=== PATIENT | male | born 1960 | race Caucasian/White ===

== ENCOUNTER 2020-05-08 11:19 | Inpatient (IN) | payer SELFPAY ==
--- NOTE | 2020-05-08 12:09 | RAD REPORT ---
EXAM DESCRIPTION: RAD - Chest Single View - 05/08/2020 12:02 pm CLINICAL HISTORY: CHEST PAIN Chest pain. COMPARISON: No comparisons FINDINGS: Portable technique limits examination quality. The lungs are grossly clear. The heart is normal in size. No displaced fractures. IMPRESSION: No acute intrathoracic process suspected.
[2020-05-08] MEDS ORDERED: ASPIRIN 81 MG CHEWABLE TABLET ONE (12:11)
[2020-05-08] MEDS ORDERED: NITROGLYCERIN 0.4 MG/TAB SL ONE (12:11)
[2020-05-08 12:23] LABS: Protime INR 0.93
[2020-05-08 12:24] LABS: Basophils % 1.3 % (0-1.3); Hematocrit 41.8 % (39.6-49.0); Lymphocytes % 16.6 % (15.3-44.8); MPV 6.7 fL (7.6-11.3); RBC Red Blood Cell Count 4.52 M/uL (4.33-5.43)
[2020-05-08 12:53] LABS: ALT/SGPT 31 U/L (12-78); AST/SGOT 22 U/L (15-37); Albumin 3.8 g/dL (3.4-5.0); Alkaline Phosphatase 78 U/L (45-117); BUN Blood Urea Nitrogen 15 mg/dL (7-18); Bicarbonate 25 mmol/L (21-32); Bilirubin Direct 0.1 mg/dL (0-0.2); Bilirubin Total 0.5 mg/dL (0.2-1.0); Glucose Level 105 mg/dL (74-106); Magnesium 2.4 mg/dL (1.8-2.4); NT PRO-BNP 73 pg/mL (<125); Potassium 4.1 mmol/L (3.5-5.1); Protein, Total 7.3 g/dL (6.4-8.2); Sodium Level 136 mmol/L (136-145); Troponin (Emerg Dept Use Only) < 0.02 ng/mL (0.0-0.045)
--- NOTE | 2020-05-08 13:26 | EDPHYS ---
Physician Documentation [facility] Name: Flavio Peguero Age: 60 yrs Sex: Male : 1960 Arrival Date: 05/08/2020 Time: 11:22 Bed 20 Private MD: ED Physician Luan Lui HPI: 05/08 12:03 This 60 yrs old Male presents to ER via Ambulatory with complaints of L Side cp Numbness, Numbness In Chest. 12:05 The patient or guardian reports chest pain that is located primarily in the anterior cp chest wall, left. 12:05 Onset: this morning, while at work. The pain radiates to the left arm. Associated signs cp and symptoms: Pertinent positives: numbness of lips, left side of chest and left arm, Pertinent negatives: headache, weakness. The chest pain is described as aching. Duration: The patient or guardian reports multiple episodes, that are worse with exertion. Severity of pain: in the emergency department the pain has improved markedly. The patient has not experienced similar symptoms in the past. 12:05 Modifying factors: The symptoms are alleviated by rest, the symptoms are aggravated by cp activity. Historical: - Allergies: 11:37 PENICILLINS; ll1 - PMHx: 11:37 Hypertension; Gout; ll1 - PSHx: 11:37 None; ll1 - Immunization history:: Adult Immunizations up to date. - Social history:: Smoking status: Patient/guardian denies using tobacco, the patient reports quitting approximately 6 years ago, Patient/guardian denies using alcohol, street drugs. ROS: 12:05 Constitutional: Negative for body aches, chills, fever, poor PO intake. cp 12:05 Cardiovascular: Positive for chest pain, of the left side of chest. 12:05 Respiratory: Negative for cough, shortness of breath, wheezing. 12:05 Abdomen/GI: Negative for abdominal pain, nausea, vomiting, and diarrhea. 12:05 Back: Negative for radiated pain. 12:05 Neuro: Positive for numbness, tingling, of the left side of chest and left arm, Negative for weakness. 12:05 All other systems are negative. Exam: 12:00 ECG was reviewed by the Attending Physician. cp 12:09 Constitutional: The patient appears in no acute distress, alert, awake, comfortable, cp non-diaphoretic, non-toxic, well developed, well nourished. 12:09 Head/Face: Normocephalic, atraumatic. cp 12:09 Eyes: Periorbital structures: appear normal, Conjunctiva: normal, no exudate, no injection, Sclera: no appreciated abnormality, Lids and lashes: appear normal, bilaterally. 12:09 ENT: External ear(s): are unremarkable, Nose: is normal, Mouth: is normal, Posterior pharynx: Airway: no evidence of obstruction, patent. 12:09 Neck: ROM/movement: is normal, is supple, without pain, no range of motions limitations. 12:09 Chest/axilla: Inspection: normal, Palpation: is normal, no crepitus, no tenderness. 12:09 Cardiovascular: Rate: normal, Rhythm: regular, Heart sounds: murmur, not appreciated, rub, not appreciated, gallop, not appreciated, Edema: is not appreciated, JVD: is not appreciated. 12:09 Respiratory: the patient does not display signs of respiratory distress, Respirations: normal, no use of accessory muscles, no retractions, labored breathing, is not present, Breath sounds: are clear throughout, no decreased breath sounds. 12:09 Abdomen/GI: Inspection: abdomen appears normal, Palpation: abdomen is soft and non-tender, in all quadrants. 12:09 Back: pain, is absent, ROM is normal. 12:09 Neuro: Orientation: to person, place \T\ time. Mentation: is normal, Cerebellar function: is grossly normal, Motor: moves all fours, strength is normal, Sensation: no obvious gross deficits. Vital Signs: 11:35 BP 195 / 95; Pulse 62; Resp 18; Temp 98.1; Pulse Ox 97% ; Pain 3/10; ll1 12:21 BP 174 / 91; Pulse 63; Resp 20; Pulse Ox 96% on R/A; jr10 12:57 BP 162 / 86; Pulse 56; Resp 18; Pulse Ox 96% on R/A; jr10 13:23 BP 175 / 88 RA; Pulse 58; Resp 18; Pulse Ox 94% on R/A; jr10 13:23 BP 155 / 94 LA; Pulse 58; Resp 18; Pulse Ox 95% ; jr10 14:54 BP 156 / 95; Pulse 55; Resp 18; Pulse Ox 96% on R/A; Pain 0/10; jr10 16:23 BP 168 / 82; Pulse 53; Resp 18; Pulse Ox 96% ; jr10 NIH Stroke Scale Scores: 12:00 NIHSS Score: 0 jr10 12:09 NIHSS Score: 0 [place] Coma Score: 12:00 Eye Response: spontaneous(4). Verbal Response: oriented(5). Motor Response: obeys jr10 commands(6). Total: 15. MDM: 11:39 Patient medically screened. cp 13:15 The patient was given aspirin in the Emergency Department. Data reviewed: vital signs, nurses notes, lab test result(s), EKG, radiologic studies, plain films. 13:15 Test interpretation: by ED physician or midlevel provider: ECG. cp 13:25 HEART Score: History: Highly Suspicious (2), ECG: Normal (0), Age: > 45 and < 65 years cp (1), Risk Factors: 1 or 2 risk factors (1), [Hypertension] Troponin: < or = 1 x Normal Limit (0). 13:25 Counseling: I had a detailed discussion with the patient and/or guardian regarding: the cp historical points, exam findings, and any diagnostic results supporting the discharge/admit diagnosis, the presence of at least one elevated blood pressure reading (>120/80) during this emergency department visit, lab results, radiology results, the need for further work-up and treatment in the hospital. Response to treatment: the patient's condition has returned to base line. Physician consultation: Jerome Roldan MD was called at 13:20, was contacted at 13:20, regarding admission, to the telemetry unit. patient's condition, and will see patient in ED. 05/08 11:39 Order name: Basic Metabolic Panel; Complete Time: 13:10 cp 05/08 11:39 Order name: CBC with Diff; Complete Time: 12:40 cp 05/08 12:40 Interpretation: Normal except: MPV 6.7; EOSINOPHIL % 8.6. cp 05/08 11:39 Order name: LFT's; Complete Time: 13:10 cp 05/08 11:39 Order name: Magnesium; Complete Time: 13:10 cp 05/08 11:39 Order name: NT PRO-BNP; Complete Time: 13:10 cp 05/08 11:39 Order name: PT-INR; Complete Time: 12:40 cp 05/08 11:39 Order name: Troponin (emerg Dept Use Only); Complete Time: 13:10 cp 05/08 15:27 Order name: Troponin I [facility] 05/08 15:27 Order name: Troponin I [facility] 05/08 15:27 Order name: Troponin I [facility] 05/08 15:27 Order name: Troponin I [facility] 05/08 15:28 Order name: Basic Metabolic Panel [facility] 05/08 15:28 Order name: CBC with Automated Diff [facility] 05/08 15:28 Order name: Lipid Profile [facility] 05/08 11:39 Order name: XRAY Chest (1 view); Complete Time: 12:40 cp 05/08 11:39 Order name: EKG; Complete Time: 11:40 cp 05/08 11:39 Order name: Cardiac monitoring; Complete Time: 11:47 cp 05/08 11:39 Order name: EKG - Nurse/Tech; Complete Time: 11:47 cp 05/08 11:39 Order name: IV Saline Lock; Complete Time: 12:15 cp 05/08 11:39 Order name: Labs collected and sent; Complete Time: 12:16 cp 05/08 11:39 Order name: O2 Per Protocol; Complete Time: 12:16 cp 05/08 11:39 Order name: O2 Sat Monitoring; Complete Time: 12:16 cp 05/08 13:10 Order name: Blood Pressure Recheck: bilateral upper extremity; Complete Time: 13:22 cp 05/08 15:27 Order name: CONS Physician Consult [facility] 05/08 15:27 Order name: Heart Healthy [facility] 05/08 15:27 Order name: EKG Electrocardiogram [facility] 05/08 15:52 Order name: CT Head Brain wo Cont 05/08 16:28 Order name: CT; Complete Time: 17:11 EDMS EC:00 Rate is 57 beats/min. Rhythm is regular. DE interval is normal. QRS interval is normal. cp QT interval is normal. T waves are Inverted in lead aVR. Interpreted by me. Reviewed by me. Administered Medications: 12:12 Drug: Aspirin Chewable Tablet 324 mg Route: PO; jr10 14:55 Follow up: Response: No adverse reaction jr10 13:24 Not Given (pt denies pain/pressure since arrival): Nitroglycerin 0.4 mg Sublingual once jr10 Disposition: 14:00 Chart complete. cp Disposition: 05/08/20 13:26 Hospitalization ordered by Jerome Roldan for Observation. Preliminary diagnosis is Chest pain, unspecified. - Bed requested for Telemetry/MedSurg (observation). - Status is Observation. jr10 - Condition is Stable. - Problem is new. - Symptoms are resolved. NIH Stroke Scale - NIH Stroke Score Date: 05/08/2020 Time: 12:00 Total Score = 0 1a. Level of Consciousness (LOC) - 0(Alert) 1b. Level of Consciousness (LOC) (Year \T\ Age) - 0(Both) 1c. LOC Commands (Open \T\ Closes Eyes/Latex Spooler) - 0(Both) 2. Best Gaze (Lateral Gaze Paresis) - 0(Normal) 3. Visual Field Loss - 0(No visual loss) 4. Facial Palsy - 0(Normal) 5a. Left Arm: Motor (10-second hold) - 0(No drift) 5b. Right Arm: Motor (10-second hold) - 0(No drift) 6a. Left Leg: Motor (5-second hold - always test supine) - 0(No drift) 6b. Right Leg: Motor (5-second hold - always test supine) - 0(No drift) 7. Limb Ataxia (finger/nose \T\ heel/ospina - test with eyes open) - 0(Absent) 8. Sensory Loss (pinprick arms/legs/face) - 0(Normal) 9. Best Language: Aphasia (description/naming/reading) - 0(No aphasia) 10. Dysarthria (speech clarity - read or repeat words) - 0(Normal) 11. Extinction and Inattention (visual/tactile/auditory/spatial/personal) - 0(No abnormality) Initials: jr10 NIH Stroke Scale - NIH Stroke Score Date: 05/08/2020 Time: 12:09 Total Score = 0 1a. Level of Consciousness (LOC) - 0(Alert) 1b. Level of Consciousness (LOC) (Year \T\ Age) - 0(Both) 1c. LOC Commands (Open \T\ Closes Eyes/Latex Spooler) - 0(Both) 2. Best Gaze (Lateral Gaze Paresis) - 0(Normal) 3. Visual Field Loss - 0(No visual loss) 4. Facial Palsy - 0(Normal) 5a. Left Arm: Motor (10-second hold) - 0(No drift) 5b. Right Arm: Motor (10-second hold) - 0(No drift) 6a. Left Leg: Motor (5-second hold - always test supine) - 0(No drift) 6b. Right Leg: Motor (5-second hold - always test supine) - 0(No drift) 7. Limb Ataxia (finger/nose \T\ heel/ospina - test with eyes open) - 0(Absent) 8. Sensory Loss (pinprick arms/legs/face) - 0(Normal) 9. Best Language: Aphasia (description/naming/reading) - 0(No aphasia) 10. Dysarthria (speech clarity - read or repeat words) - 0(Normal) 11. Extinction and Inattention (visual/tactile/auditory/spatial/personal) - 0(No abnormality) Initials: cp Addendum: 05/09/2020 19:50 Co-signature as Attending Physician, Luan Lui MD I agree with the kdr assessment and plan of care. Signatures: Dispatcher [employer] EDMS Christina Ramos Kevin, MD MD kdr Willi Hernandez PA PA cp Nate Small, RN RN ll1 Nell Dacosta RN RN jr10 Corrections: (The following items were deleted from the chart) 05/08 15:53 13:26 Hospitalization Ordered by Jerome Roldan MD for Observation. Preliminary bd diagnosis is Chest pain, unspecified. Bed requested for Telemetry/MedSurg (observation). Status is Observation. Condition is Stable. Problem is new. Symptoms are resolved. cp 17:07 15:53 05/08/2020 13:26 Hospitalization Ordered by Jerome Roldan MD for jr10 Observation. Preliminary diagnosis is Chest pain, unspecified. Bed requested for Telemetry/MedSurg (observation). Status is Observation. Condition is Stable. Problem is new. Symptoms are resolved. bd
--- NOTE | 2020-05-08 13:26 | ER ---
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 Pain is intermittent, when he sits and relaxes he feels better. Coronavirus screen: Client denies travel out of the [place] in the last 14 days. At this time, the client does not indicate any symptoms associated with coronavirus-19. Ebola Screen: Patient denies travel to an Ebola-affected area in the 21 days before illness onset. Initial Sepsis Screen: Does the patient meet any 2 criteria? No. Patient's initial sepsis screen is negative. Risk Assessment: Do you want to hurt yourself or someone else? Patient reports no desire to harm self or others. Onset of symptoms was May 08, 2020. 11:35 Method Of Arrival: Ambulatory ll1 11:35 Acuity: SINAN 3 ll1 Historical: - Allergies: 11:37 PENICILLINS; ll1 - PMHx: 11:37 Hypertension; Gout; ll1 - PSHx: 11:37 None; ll1 - Immunization history:: Adult Immunizations up to date. - Social history:: Smoking status: Patient/guardian denies using tobacco, the patient reports quitting approximately 6 years ago, Patient/guardian denies using alcohol, street drugs. Screenin:00 Abuse screen: Denies threats or abuse. Denies injuries from another. Nutritional jr10 screening: No deficits noted. Tuberculosis screening: No symptoms or risk factors identified. Fall Risk IV access (20 points). Assessment: 12:00 General: Appears in no apparent distress. Behavior is calm, cooperative, appropriate jr10 for age. Pain: Denies pain. Complains of pain in anterior aspect of left upper chest, left arm and left corner of mouth pt reports feeling a numbness that started in the left side of his mouth radiating down to left anterior chest wall and left arm approx 1.5 hours ago. Denies any pain/pressure at present. Neuro: No deficits noted. Cardiovascular: Reports chest pain, fatigue, lightheadedness, Denies shortness of breath, Patient's skin is warm and dry. Rhythm is sinus rhythm. Respiratory: Airway is patent Respiratory effort is even, unlabored, Respiratory pattern is regular, symmetrical, Breath sounds are clear bilaterally. Denies shortness of breath. GI: No deficits noted. No signs and/or symptoms were reported involving the gastrointestinal system. : No deficits noted. No signs and/or symptoms were reported regarding the genitourinary system. EENT: No deficits noted. No signs and/or symptoms were reported regarding the EENT system. Derm: No deficits noted. No signs and/or symptoms reported regarding the dermatologic system. Musculoskeletal: No deficits noted. No signs and/or symptoms reported regarding the musculoskeletal system. 14:00 Reassessment: Patient and/or family updated on plan of care and expected duration. Pain jr10 level reassessed. Patient is alert, oriented x 3, equal unlabored respirations, skin warm/dry/pink. 16:54 Reassessment: Patient and/or family updated on plan of care and expected duration. Pain jr10 level reassessed. Patient is alert, oriented x 3, equal unlabored respirations, skin warm/dry/pink. pt given meal tray, sitting up in bed eating. Updated on POC and room assignment, will be transferred to floor. Patient states symptoms have improved. Vital Signs: 11:35 BP 195 / 95; Pulse 62; Resp 18; Temp 98.1; Pulse Ox 97% ; Pain 3/10; ll1 12:21 BP 174 / 91; Pulse 63; Resp 20; Pulse Ox 96% on R/A; jr10 12:57 BP 162 / 86; Pulse 56; Resp 18; Pulse Ox 96% on R/A; jr10 13:23 BP 175 / 88 RA; Pulse 58; Resp 18; Pulse Ox 94% on R/A; jr10 13:23 BP 155 / 94 LA; Pulse 58; Resp 18; Pulse Ox 95% ; jr10 14:54 BP 156 / 95; Pulse 55; Resp 18; Pulse Ox 96% on R/A; Pain 0/10; jr10 16:23 BP 168 / 82; Pulse 53; Resp 18; Pulse Ox 96% ; jr10 [place] Coma Score: 12:00 Eye Response: spontaneous(4). Verbal Response: oriented(5). Motor Response: obeys jr10 commands(6). Total: 15. NIH Stroke Scale Scores: 12:00 NIHSS Score: 0 jr10 12:09 NIHSS Score: 0 cp ED Course: 11:22 Patient arrived in ED. ds1 11:31 Willi Hernandez PA is PHCP. cp 11:31 Luan Lui MD is Attending Physician. cp 11:35 Nate Small, DENTON is Primary Nurse. ll1 11:36 Triage completed. ll1 11:37 Arm band placed on Patient placed in an exam room, on a stretcher. ll1 11:46 EKG completed in triage. Results shown to MD. ll1 11:52 Nell Dacosta, DENTON is Primary Nurse. jr10 12:00 Patient has correct armband on for positive identification. Bed in low position. Call jr10 light in reach. Side rails up X2. monitor car operator on. Pulse ox on. NIBP on. 12:00 Inserted saline lock: 20 gauge in left forearm, using aseptic technique. IV is patent, jr10 is intact, with good blood return, Flushed. 12:03 XRAY Chest (1 view) In Process Unspecified. EDMS 12:20 No provider procedures requiring assistance completed. jr10 13:25 Jerome Roldan MD is Hospitalizing Provider. cp 16:41 Patient admitted, IV remains in place. intact, bleeding controlled, No redness/swelling jr10 at site. Administered Medications: 12:12 Drug: Aspirin Chewable Tablet 324 mg Route: PO; jr10 14:55 Follow up: Response: No adverse reaction jr10 13:24 Not Given (pt denies pain/pressure since arrival): Nitroglycerin 0.4 mg Sublingual once jr10 Outcome: 13:26 Decision to Hospitalize by Provider. cp 16:41 Admitted to Med/surg accompanied by tech, via wheelchair, room 229, with chart, Report jr10 called to DENTON RODRIGUEZ 16:41 Condition: improved 16:41 Instructed on the need for admit. 17:07 Patient left the ED. jr10 NIH Stroke Scale - NIH Stroke Score Date: 05/08/2020 Time: 12:00 Total Score = 0 1a. Level of Consciousness (LOC) - 0(Alert) 1b. Level of Consciousness (LOC) (Year \T\ Age) - 0(Both) 1c. LOC Commands (Open \T\ Closes Eyes/Signal Repairer) - 0(Both) 2. Best Gaze (Lateral Gaze Paresis) - 0(Normal) 3. Visual Field Loss - 0(No visual loss) 4. Facial Palsy - 0(Normal) 5a. Left Arm: Motor (10-second hold) - 0(No drift) 5b. Right Arm: Motor (10-second hold) - 0(No drift) 6a. Left Leg: Motor (5-second hold - always test supine) - 0(No drift) 6b. Right Leg: Motor (5-second hold - always test supine) - 0(No drift) 7. Limb Ataxia (finger/nose \T\ heel/ospina - test with eyes open) - 0(Absent) 8. Sensory Loss (pinprick arms/legs/face) - 0(Normal) 9. Best Language: Aphasia (description/naming/reading) - 0(No aphasia) 10. Dysarthria (speech clarity - read or repeat words) - 0(Normal) 11. Extinction and Inattention (visual/tactile/auditory/spatial/personal) - 0(No abnormality) Initials: jr10 NIH Stroke Scale - NIH Stroke Score Date: 05/08/2020 Time: 12:09 Total Score = 0 1a. Level of Consciousness (LOC) - 0(Alert) 1b. Level of Consciousness (LOC) (Year \T\ Age) - 0(Both) 1c. LOC Commands (Open \T\ Closes Eyes/Signal Repairer) - 0(Both) 2. Best Gaze (Lateral Gaze Paresis) - 0(Normal) 3. Visual Field Loss - 0(No visual loss) 4. Facial Palsy - 0(Normal) 5a. Left Arm: Motor (10-second hold) - 0(No drift) 5b. Right Arm: Motor (10-second hold) - 0(No drift) 6a. Left Leg: Motor (5-second hold - always test supine) - 0(No drift) 6b. Right Leg: Motor (5-second hold - always test supine) - 0(No drift) 7. Limb Ataxia (finger/nose \T\ heel/ospina - test with eyes open) - 0(Absent) 8. Sensory Loss (pinprick arms/legs/face) - 0(Normal) 9. Best Language: Aphasia (description/naming/reading) - 0(No aphasia) 10. Dysarthria (speech clarity - read or repeat words) - 0(Normal) 11. Extinction and Inattention (visual/tactile/auditory/spatial/personal) - 0(No abnormality) Initials: cp Signatures: Dispatcher [employer] [facility] Natali Anders ds1 Willi Hernandez PA PA cp Lewis, Lynsay RN RN ll1 Nell Dacosta RN RN jr10
[2020-05-08] MEDS ORDERED: NITROGLYCERIN 0.4 MG/TAB SL PRN ×2 (15:10→17:05)
--- NOTE | 2020-05-08 16:28 | RAD REPORT ---
EXAM DESCRIPTION: CT - Head Brain Wo Cont - 05/08/2020 4:07 pm CLINICAL HISTORY: Numbness COMPARISON: None. TECHNIQUE: Computed axial tomography of the head was obtained. IV contrast was not requested. All CT scans are performed using dose optimization technique as appropriate and may include automated exposure control or mA/KV adjustment according to patient size. FINDINGS: An intracranial bleed is not seen . The ventricles are normal in caliber. No extra-axial fluid collection is noted. Fluid within the sinuses/ mastoids is not seen. IMPRESSION: No acute intracranial abnormality is seen. If patient's symptoms persist MRI of the bra in would be recommended.
[2020-05-08] MEDS ORDERED: HEPARIN 5000 UNIT/ML 1 ML VIAL SQ SCH (17:00)
[2020-05-08 17:35] VITALS: BMI 26.4
--- NOTE | 2020-05-08 19:40 | P.HP ---
Certification for Inpatient Patient admitted to: Observation With expected LOS: <2 Midnights Patient will require the following post-hospital care: None Practitioner: I am a practitioner with admitting privileges, knowledge of patient current condition, hospital course, and medical plan of care. Services: Services provided to patient in accordance with Admission requirements found in Title 42 Section 412.3 of the Code of Federal Regulations Patient History Date of Service: 05/08/20 Reason for admission: chest pain, r/o ACS History of Present Illness: 60yo M, PMH: HTN, Gout, presents to ED due to left sided jaw, chest/arm numbness and pressure. He reports he was mildly exerting himself this morning, walking up and down stairs when he began to notice these symptoms. They lasted several minutes until he sat down for awhile. He continued on with his day and had recurrence of his symptoms. He has never experienced anything like this before. He states he has been in his usual state of health. No fevers/chills, SOB, PARSONS, orthopnea, recent illness, abdominal pain, change in bowel/bladder habits, new rash/lesions. He does report an on/off history of tobacco use - smoking anywhere from half a ppd to 3ppd for years at a time, quit several years ago and now just "puffs on cigars, no inhaling". His father had multiple MIs in his 30s, and from a fatal [place] at age 46. In the ED, troponin was negative, EKG without any ST segment changes, and pain resolved with nitroglycerin. Allergies Penicillins Allergy (Verified 05/08/20 17:25) Hives/Rash Home medications list reviewed: Yes Home Medications: Allopurinol 300 mg PO DAILY 05/08/20 Losartan Potassium [Cozaar] 50 mg PO DAILY 05/08/20 - Past Medical/Surgical History -: Gout -: Hypertension - Social History Smoking Status: Former smoker Review of Systems General: Unremarkable Eyes: Unremarkable ENT: Unremarkable Respiratory: Unremarkable Cardiovascular: Chest Pain, As per HPI Gastrointestinal: Unremarkable Genitourinary: Unremarkable Musculoskeletal: Unremarkable Integumentary: Unremarkable Neurological: Unremarkable Physical Examination - Vital Signs Temperature: 97.9 F Blood Pressure: 199/88 Pulse: 65 Respirations: 17 Pulse Ox (%): 99 - Physical Exam General: Alert, In no apparent distress, Cooperative HEENT: EOMI, Sclerae nonicteric Neck: Supple, JVD not distended Respiratory: Clear to auscultation bilaterally, Normal air movement Cardiovascular: No edema, Regular rate/rhythm, Normal S1 S2 Capillary refill: <2 Seconds Gastrointestinal: Normal bowel sounds, Soft and benign, Non-distended Musculoskeletal: No tenderness, No warmth Integumentary: No rashes, No breakdown Neurological: Normal speech, Normal affect - Studies Laboratory Data (last 24 hrs) 05/08/20 12:05: PT 11.0, INR 0.93 05/08/20 12:05: WBC 6.2, Hgb 14.7, Hct 41.8, Plt Count 229 05/08/20 12:05: Sodium 136, Potassium 4.1, BUN 15, Creatinine 0.94, Glucose 105, Magnesium 2.4, Total Bilirubin 0.5, AST 22, ALT 31, Alkaline Phosphatase 78 Assessment and Plan - Plan Chest Pain, ACS rule out HTN Gout Chest Pain, ACS rule out -pt with multiple risk factors for ACS -trend troponin, repeat EKG in AM -cardiology consulted for possible stress test -received full dose ASA in ED -high dose statin, lipid panel in AM HTN -continue home ARB Gout -continue allopurinol Dispo: possible DC home tomorrow - Advance Directives Does patient have a Living Will: No Does patient have a Durable POA for Healthcare: No
[2020-05-08] MEDS ORDERED: ATORVASTATIN 40 MG TAB PO SCH (21:00)
[2020-05-09] MEDS: HEPARIN 5000 UNIT/ML 1 ML VIAL SQ SCH ×2 (00:47→08:23)
[2020-05-09 01:16] VITALS: TEMP 97.3
[2020-05-09 02:33] VITALS: O2SAT 99
[2020-05-09 04:09] LABS: Absolute Lymphocytes (CBC) 1.5 K/uL (0.7-4.9); Basophils % 1.2 % (0-1.3); Hematocrit 41.1 % (39.6-49.0); Lymphocytes % 21.8 % (15.3-44.8); MPV 6.5 fL (7.6-11.3); RBC Red Blood Cell Count 4.45 M/uL (4.33-5.43)
[2020-05-09 04:23] LABS: Potassium 3.8 mmol/L (3.5-5.1)
[2020-05-09] MEDS ORDERED: LOSARTAN POTASSIUM 50 MG TABLET PO SCH (09:00)
[2020-05-09] MEDS ORDERED: ASPIRIN EC 81 MG TAB PO SCH ×2 (09:00)
[2020-05-09] MEDS ORDERED: allopurinoL 300 MG TAB PO SCH (09:00)
--- NOTE | 2020-05-09 10:46 | EKG ---
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
[2020-05-09 13:42] VITALS: BP 142/65
--- NOTE | 2020-05-09 19:40 | P.DS ---
Admission Date: 05/09/20 Discharge Date: 05/09/20 Disposition: ROUTINE DISCHARGE Discharge Condition: GOOD Reason for Admission: chest pain, r/o ACS Procedures: Problem List: Chest Pain, ACS rule out HTN Gout Brief History of Present Illness: 60yo M, PMH: HTN, Gout, presented to ED due to left sided jaw, chest/arm numbness and pressure. He reports he was mildly exerting himself morning of admission, walking up and down stairs when he began to notice these symptoms. They lasted several minutes until he sat down for awhile. He continued on with his day and had recurrence of his symptoms. He reported an on/off history of tobacco use - smoking anywhere from half a ppd to 3ppd for years at a time, quit several years ago and now just "puffs on cigars, no inhaling". His father had multiple MIs in his 30s, and from a fatal DC at age 46. In the ED, troponin was negative, EKG without any ST segment changes, and pain resolved with nitroglycerin. Hospital Course: Troponins were trended and remained WNL/Negative, and he had no further chest pain. His case was briefly discussed with cardiology who recommended patient f/u as outpatient, no need for inpatient stress test at this time. On day of discharge, patient felt back to his baseline and was symptom free. He was discharged home with aspirin and a stain. He was instructed to follow up with his PCP and cardiology within the next 1-2 weeks. Of note, a CT head was performed in ED due to numbness of jaw to arm. It showed no acute abnormalities/pathology. Vital Signs/Physical Exam: Temp Pulse Resp BP Pulse Ox 97.3 F 57 18 142/65 H 98 05/09/20 12:00 05/09/20 12:00 05/09/20 12:00 05/09/20 12:05/09/20 12:00 General: Alert, In no apparent distress HEENT: Mucous membr. moist/pink, EOMI Neck: Supple, JVD not distended Respiratory: Clear to auscultation bilaterally, Normal air movement Cardiovascular: No edema, Regular rate/rhythm, Normal S1 S2 Capillary refill: <2 Seconds Gastrointestinal: Normal bowel sounds Musculoskeletal: No erythema, No tenderness Integumentary: No rashes, No breakdown Neurological: Normal speech, Normal strength at 5/5 x4 extr, Normal affect Laboratory Data at Discharge: WBC 6.8 K/uL (4.3-10.9) 05/09/20 03:53 Hgb 14.5 g/dL (13.6-17.9) 05/09/20 03:53 Hct 41.1 % (39.6-49.0) 05/09/20 03:53 Plt Count 218 K/uL (152-406) 05/09/20 03:53 PT 11.0 SECONDS (9.5-12.5) 05/08/20 12:05 INR 0.93 05/08/20 12:05 Sodium 141 mmol/L (136-145) 05/09/20 03:53 Potassium 3.8 mmol/L (3.5-5.1) 05/09/20 03:53 BUN 13 mg/dL (7-18) 05/09/20 03:53 Creatinine 1.05 mg/dL (0.55-1.3) 05/09/20 03:53 Glucose 98 mg/dL (74-106) 05/09/20 03:53 Magnesium 2.4 mg/dL (1.8-2.4) 05/08/20 12:05 Total Bilirubin 0.5 mg/dL (0.2-1.0) 05/08/20 12:05 AST 22 U/L (15-37) 05/08/20 12:05 ALT 31 U/L (12-78) 05/08/20 12:05 Alkaline Phosphatase 78 U/L (45-117) 05/08/20 12:05 Troponin I Cancelled 05/09/20 12:00 Triglycerides 231 mg/dL (<150) H 05/09/20 03:53 Cholesterol 168 mg/dL (<200) 05/09/20 03:53 HDL Cholesterol 47 mg/dL (40-60) 05/09/20 03:53 Cholesterol/HDL Ratio 3.57 05/09/20 03:53 Home Medications: Allopurinol 300 mg PO DAILY 05/08/20 Losartan Potassium [Cozaar*] 50 mg PO DAILY 05/08/20 Aspirin [Aspirin EC 81 MG] 81 mg PO DAILY 30 Days #30 tablet. 05/09/20 Atorvastatin Calcium [Lipitor] 40 mg PO BEDTIME 30 Days #30 tab 05/09/20 New Medications: Aspirin [Aspirin EC 81 MG] 81 mg PO DAILY 30 Days #30 tablet. Atorvastatin Calcium [Lipitor] 40 mg PO BEDTIME 30 Days #30 tab Patient Discharge Instructions: follow up with PCP within 1 week. Follow up with Cardiology, Dr. Castellanos. Diet: AHA Activity: Ad figueroa Followup: Oliver Castellanos MD [ACTIVE - CAN ADMIT] -
== END 2020-05-09 15:08 | disposition home or self-care (01) | DRG 313 ==
LOC: ER 11:19 → ERHOLD 15:08 → 2ND 16:38 → OBSVTOIN 05-09 07:46
PROVIDERS: ADMIT Hospitalist; ATTEND Hospitalist
DX: R07.9 Chest pain, unspecified (principal); I10 Essential (primary) hypertension; M10.9 Gout, unspecified; Z79.899 Other long term (current) drug therapy; Z87.891 Personal history of nicotine dependence; Z88.0 Allergy status to penicillin
CPT/HCPCS: 36415; 70450; 71045; 80048; 80061; 80076; 83735; 83880; 84484; 85025; 85610; 93005; 94760; 99285; G0378; J1644; U0002